=== PATIENT | female | born 1985 | race Asian ===

== ENCOUNTER 2021-03-29 10:56 | Inpatient (IN) ==
[2021-03-29 11:16] LABS: Amnisure Positive
[2021-03-29] MEDS ORDERED: LACTATED RINGER'S 1,000 ML IV SCH (11:45)
--- NOTE | 2021-03-29 11:49 | History & Physical Report ---
Date of Service March 29, 2021 Assessment & Plan (1) : Plan: Stable, routine care -admit to L&D -NPO except sips and chips -IV -FHTs -labs pending -Rh+, RI, GBS neg -COVID-19 pending -planned C/S with Dr. Kim (2) Supervision of elderly primigravida: (3) Gestational diabetes: Plan: managed with diet, nutrition counseling. no POC unless indicated. History of Present Illness Primary Care Provider: NO PCP Basim Vickers is a 35 y/o female currently at 36 WGA with an JOHN 04/20/21 as determined by LMP who is here for an elective c/s. Her was complicated by gestational diabetes mellitus. No contractions; + movement; + fluid loss; no bloody show. On ROS, she reports a mild headache. Had regular appointments with OB. Labs: Pendingl Blood type: A+ Antibody screen: Negative Hg: pending Hct: pending WBC: pending Plt: pending Rubella: immune VDRL/RPR: nonreactive Gonorrhea: Negative Chlamydia: Negative HIV: Negative HbSAg: Negative GBS: Pending Other screens: cff-DNA: Negative-SLN CF: Negative SMA: Negative Allergies Allergy/AdvReac Type Severity Reaction Status Date / Time No Known Allergies Allergy Verified 03/29/21 09:21 Home Medications Medication Instructions Recorded Confirmed Type prenat.vits,arlin,[id number]-[id number] 1 tab PO DAILY 09/12/20 03/29/21 History acetone (urine) test (Ketone Urine #50 ea 02/22/21 03/29/21 Rx Test) blood sugar diagnostic (OneTouch #150 ea 02/22/21 03/29/21 Rx Verio test strips) blood-glucose meter (OneTouch #1 ea 02/22/21 03/29/21 Rx Verio Reflect Meter) lancets 33 gauge (OneTouch Delica #150 ea 02/22/21 03/29/21 Rx Lancets) Patient History Medical History (Updated 03/29/21 @ 12:20 by Samia Peguero RN) Gestational diabetes HPV (human papilloma virus) infection Varicella vaccination Surgical History (Updated 09/12/20 @ 11:06 by Chiqui Alvarado) S/P loop electrosurgical excision procedure S/P wisdom tooth extraction Family History (Updated 09/12/20 @ 11:08 by Chiqui Alvarado) Denies family history of Ovarian cancer Breast cancer Colorectal cancer Social History (Updated 09/12/20 @ 11:09 by Chiqui Alvarado) Smoking Status: Never smoker Hx Alcohol Use: No Hx Substance Use: No Preferred Language: Bangladeshi Communication Ability: Effective Telecommunications Technician Required: No Beliefs That Will Affect Care: None marital status: marital status details: Julio César Perez (39) [phone] Current Living Situation: Spouse Current Living Situation Comment: lives with spouse, no pets current occupational status: employed current occupation: post [employer] Other Information That Helps Us Care for You: No Feels Safe at Home: Yes Safety Concerns: Feels Safe At This Time Review of Systems All systems reviewed & are unremarkable except as noted in HPI & below as per Subjective / HPI Physical Exam Physical Exam: General: Alert, oriented. No acute distress. Cardiac: Regular rate and rhythm, no murmurs/rubs/gallops. Respiratory: Clear to auscultation bilaterally a/p, no wheezes/rales/rhonchi. No increased work of breathing. Symmetrical chest rise. No respiratory distress. Lower Extremities: No lower extremity edema or swelling. No deep calf pain. Linda's negative bilaterally Baseline:140 Variability: minimal Accelerations: present Decelerations:none Results & Data ([facility]) Vital Signs (Past 12 Hours) Vital Signs Pulse BP 03/29/21 11:03 74 122/74 Resident Activity Tracking Resident Involvement: Resident Care Provided Care Provided: OB Delivery
[2021-03-29] MEDS ORDERED: CITRIC ACID/SODIUM CITRATE 15 ML UDC PO SCH (12:00)
[2021-03-29] MEDS ORDERED: ceFAZolin 2000MG 2,000 MG/15 ML SYR IV SCH (12:00)
[2021-03-29 12:14] LABS: Basophils # (auto) 0.03 K/uL (0-0.2); Basophils % (auto) 0.3 %; Eosinophils # (auto) 0.02 K/uL (0-0.5); Eosinophils % (auto) 0.2 %; Hematocrit (blood only) 36.5 % (37-47); Hemoglobin 12.5 g/dL (12.0-16.0); Immature Granulocytes # (auto) 0.03 K/uL (0.00-0.02); Immature Granulocytes % (auto) 0.3 %; Lymphocytes # (auto) 1.23 K/uL (1.2-3.4); Lymphocytes % (auto) 12.4 %; Mean Corpuscular Hemoglobin 32.6 pg (25-34); Mean Corpuscular Hgb Conc 34.2 g/dL (32-36); Mean Corpuscular Volume 95.3 fL (80-100); Monocytes # (auto) 0.51 K/uL (0.11-0.59); Monocytes % (auto) 5.2 %; Neutrophils # (auto) 8.07 K/uL (1.4-6.5); Neutrophils % (auto) 81.6 %; Platelet Count 255 K/uL (130-400); RDW Coefficient of Variation 13.7 % (11.5-14.5); RDW Standard Deviation 47.4 fL (36.4-46.3); Red Blood Count 3.83 M/uL (4.2-5.4); White Blood Count 9.89 K/uL (4.8-10.8)
[2021-03-29] MEDS ORDERED: ePHEDrine sulfate 50 MG/ML AMP IV PRN (14:27)
[2021-03-29] MEDS ORDERED: NALOXONE HCL 1 MG in SODIUM CHLORIDE 0.9% 1000ML 1,000 ML IV PRN (14:27)
[2021-03-29] MEDS ORDERED: HYDROmorphone INJ 0.5 MG/0.5 ML SYR IV PRN (14:27)
[2021-03-29] MEDS ORDERED: NALBUPHINE HCL INJ 10 MG/ML AMP IV PRN (14:27)
[2021-03-29] MEDS ORDERED: NALOXONE HCL 0.4 MG/1 ML VIAL/CARP IV PRN (14:27)
[2021-03-29] MEDS ORDERED: ONDANSETRON INJ 2 MG/ML 2 ML VIAL IV PRN (14:27)
[2021-03-29] MEDS ORDERED: MoRPHine SULFATE PF 1 MG/ML 10 ML AMP/VIAL INT SPINAL ONE (14:27)
[2021-03-29] MEDS ORDERED: NALOXONE HCL 0.08 MG in SYRINGE 1.8 ML IV PRN (14:27)
[2021-03-29] MEDS ORDERED: LACTATED RINGER'S 500 ML IV PRN (14:27)
[2021-03-29] MEDS ORDERED: diphenhydrAMINE 50 MG/ML VIAL IV PRN (14:27)
--- NOTE | 2021-03-29 14:27 | Anesthesiology Consultation ---
Date of Service March 29, 2021 Assessment & Plan ASA ASA2 Proposed Anesthesia Anesthesia Type: Spinal Risk / Benefits Reviewed With: PT / POA / Parent / Guardian, Accepts Plan and Informed Consent Obtained History Surgery Operation Date: 03/29/21 14:30 Proposed Procedures p Section in LD - Irish Ledesma MD, FACOG Height/Weight Height: 5 ft 2 in Weight: 65.771 kg Allergies Allergy/AdvReac Type Severity Reaction Status Date / Time No Known Allergies Allergy Verified 03/29/21 09:21 Medications Home Medications Medication Instructions Recorded Confirmed Last Taken prenat.vits,arlin,cst-krgy-oyquk 1 tab PO DAILY 09/12/20 03/29/21 03/28/21 08:00 acetone (urine) test (Ketone Urine #50 ea 02/22/21 03/29/21 Unknown Test) blood sugar diagnostic (OneTouch #150 ea 02/22/21 03/29/21 Unknown Verio test strips) blood-glucose meter (OneTouch #1 ea 02/22/21 03/29/21 Unknown Verio Reflect Meter) lancets 33 gauge (OneTouch Delica #150 ea 02/22/21 03/29/21 Unknown Lancets) NPO Date Last Intake of Fluids: 03/29/21 Time Last Intake of Fluids: 08:00 Date Last Intake of Solids: 03/29/21 Time Last Intake of Solids: 08:00 Past Medical History Medical History Gestational diabetes HPV (human papilloma virus) infection Varicella vaccination Exercise / Class Metabolic Activity II 4-5 Yardwork/Stairs/Walk up hill Past Family History Family History Denies family history of Ovarian cancer Breast cancer Colorectal cancer Past Surgical History Surgical History S/P loop electrosurgical excision procedure S/P wisdom tooth extraction Past Anesthesia History No Hx of Anesthesia Complications and No Family Hx of Anesthesia Complications History of PONV No Hx of PONV and No Hx of Motion Sickness Social History Smoking Status: Never smoker Hx Alcohol Use: No Hx Substance Use: No Review of Systems denies fever/cough/ colds/ chest pain/ SOB/ DORIS denies DORIS Physical Exam Vital Signs Last Vital Signs Temp 36.7 C 03/29/21 14:10 Pulse 83 03/29/21 14:08 Resp 16 03/29/21 14:10 BP 109/61 03/29/21 14:08 ENMT Mouth: no TMJ abnormality and no dentition abnormality Thyromental Distance: > or= 3.5 Finger Breadths Mallampati Class: II Neck neck extension not limited Respiratory normal respiratory effort; no respiratory distress Auscultation: lungs clear to auscultation bilaterally Cardiovascular Rate/Rhythm: regular rate and regular rhythm Neurologic moves all extremities Psychiatric Orientation: alert and oriented x 3 Testing Laboratory Results 03/29/21 11:57 Blood Type A Positive 03/29/21 11:57 Antibody Screen NEGATIVE 03/29/21 11:57
[2021-03-29] MEDS ORDERED: DC INTRASPINAL MORPHINE SCH (14:30)
[2021-03-29] MEDS ORDERED: NO NARCOTICS OR SEDATIVES SCH (14:30)
[2021-03-29] MEDS ORDERED: SODIUM CHLORIDE 0.9% 1000ML 1,000 ML IV SCH (14:30)
[2021-03-29] MEDS ORDERED: OXYTOCIN 10 UNITS/ML VIAL ONE (14:36)
[2021-03-29] MEDS ORDERED: fentaNYL citrate 100 MCG/2 ML VIAL ONE (14:36)
[2021-03-29] MEDS ORDERED: MoRPHine SULFATE PF 1 MG/ML 10 ML AMP/VIAL ONE (14:36)
[2021-03-29] MEDS ORDERED: PHENYLEPHRINE 100MCG/ML 5ML SYR ONE (16:02)
[2021-03-29] MEDS ORDERED: ONDANSETRON INJ 2 MG/ML 2 ML VIAL ONE (16:18)
[2021-03-29] MEDS ORDERED: BENZOCAINE 20% AER SPR 82.5 GM CAN EXT PRN (16:36)
[2021-03-29] MEDS ORDERED: SUPERCREAM 0.870% 15 GM JAR EXT PRN (16:36)
[2021-03-29] MEDS ORDERED: SENNA 8.6 MG TAB PO PRN (16:36)
[2021-03-29] MEDS ORDERED: PROMETHAZINE HCL 25 MG in SODIUM CHLORIDE 0.9% 50 ML IV PRN (16:36)
[2021-03-29] MEDS ORDERED: HYDROCORTISONE ACETATE 25 MG SUPP PR PRN (16:36)
[2021-03-29] MEDS ORDERED: DIPHTHERIA/TETANUS/PERTUSSIS 0.5 ML SYR/VIAL IM ONE (16:36)
[2021-03-29] MEDS ORDERED: MAGNESIUM HYDROXIDE SUSP 30 ML UDC PO PRN (16:36)
--- NOTE | 2021-03-29 16:45 | Post Operative Brief Note ---
PG Immediate Post Op with CF Date of Surgery March 29, 2021 Pre & Post Diagnosis Operation Date: 03/29/21 14:30 Pre-Op Diagnosis: Ruptured membranes at 37 weeks. Elective primary section. Post-Op Diagnosis: Ruptured membranes at 37 weeks. Elective primary section. Delivery of live female child at 1606. I identified the patient and participated in the time-out.: Yes Procedure Operation Date: 03/29/21 14:30 Actual Procedures p Section in LD(Bilateral) - Irish Ledesma MD, FACOG Surgeon Irish Ledesma MD, FACOG Transfer Controller Marcello Quiros MD Estimated Blood Loss 300 Findings Consistent with Post-Op Diagnosis normal tubes & ovaries gravid uterus with 2 <1cm sessile fibroids on anterior uterine fundus Specimens Specimen Description: A. Placenta - hold B. Cord Blood Drains Vargas Catheter (Inserted after spinal anesthesia and draining clear yellow urine. ) Anesthesia Type Spinal Complications none Disposition Accompanied Patient To Recovery: Yes Disposition: L&D
--- NOTE | 2021-03-29 17:01 | Operative Report ---
PG Post Operative Report Pre & Post Diagnosis Operation Date: 03/29/21 14:30 Pre-Op Diagnosis: Ruptured membranes at 37 weeks. Elective primary section. Post-Op Diagnosis: Ruptured membranes at 37 weeks. Elective primary section. Delivery of live female child at 1606. I identified the patient and participated in the time-out.: Yes Procedure Operation Date: 03/29/21 14:30 Actual Procedures p Section in LD(Bilateral) - Irish Ledesma MD, FACOG Surgeon Irish Ledesma MD, FACOG Forest Resources Professor Marecllo Quiros MD Estimated Blood Loss 300 Findings Consistent with Post-Op Diagnosis Specimens placenta to hold Drains Vargas to straight drainage - clear urine at end of the case Anesthesia Type Spinal Complications none Disposition Accompanied Patient To Recovery: Yes Disposition: L&D I attest to the content of the Intraoperative Record and any orders documented therein. Any exceptions are noted below.
[2021-03-29] MEDS: KETOROLAC 30 MG/ML VIAL IV PRN ×2 (17:15→23:40)
[2021-03-29] MEDS ORDERED: HYDROmorphone INJ 1 MG/ML SYRINGE IV PRN (17:50)
--- NOTE | 2021-03-29 18:07 | Anesthesiology Progress Note ---
Date of Service March 29, 2021 Anesthesia Post Procedure Vital Signs Vital Signs: Temp Pulse Resp BP Pulse Ox 03/29/21 18:01 61 98 03/29/21 17:59 71 119/58 L 03/29/21 17:56 64 97 03/29/21 17:54 23 03/29/21 17:51 70 97 03/29/21 17:48 82 115/58 L 03/29/21 17:46 77 98 03/29/21 17:41 79 97 03/29/21 17:38 75 112/55 L 03/29/21 17:36 79 97 03/29/21 17:31 76 96 03/29/21 17:30 16 03/29/21 17:28 77 120/64 03/29/21 17:26 79 97 03/29/21 17:21 62 100 03/29/21 17:20 14 03/29/21 17:18 69 125/65 03/29/21 17:16 77 99 03/29/21 17:11 65 99 03/29/21 17:10 20 03/29/21 17:08 76 116/63 03/29/21 17:06 73 98 03/29/21 17:01 80 98 03/29/21 17:00 36.6 C 20 03/29/21 16:56 79 121/64 99 03/29/21 15:18 89 99 03/29/21 14:10 36.7 C 16 03/29/21 14:08 83 109/61 03/29/21 11:50 36.6 C 74 16 122/74 03/29/21 11:03 74 122/74 Pain Intensity Bilateral Abdomen: Pain Intensity: 4 Transfer of Care Handoff Completed per policy Notes Mental Status: alert / awake / arousable and participated in evaluation Patient Amnestic to Procedure: Yes Nausea / Vomiting: adequately controlled Pain: adequately controlled Airway Patency, RR, SpO2: stable & adequate BP & HR: stable & adequate Hydration State: stable & adequate Anesthetic Complications: no major complications apparent and Pt Satisfied with anesthetic care
[2021-03-29] MEDS: OXYTOCIN 20 UNITS in LACTATED RINGER'S 1,000 ML IV SCH (19:03)
--- NOTE | 2021-03-29 19:42 | Operative Report (OR) ---
DATE OF PROCEDURE: 03/29/2021 SURGEON: Irish Kim MD. DCS ENGINEER: Dr. Marcello Quiros. PREOPERATIVE DIAGNOSES: Intrauterine at 37 weeks, spontaneous rupture of membranes for jesus manuel ar fluid, requesting elective . POSTOPERATIVE DIAGNOSES: Intrauterine at 37 weeks, spontaneous rupture of membranes for cl ear fluid, requesting elective and delivery of a viable female infant, 6 pounds 10 ounces. PROCEDURE: Primary low transverse cervical section. ANESTHESIA: Subarachnoid block. BLOOD LOSS: 300 mL. HISTORY OF PRESENT ILLNESS: The patient is a 35-year-old G1, P0 female who had presented with spontaneous rupture of membranes for clear fluid at approximately 0800 hours on 03/29/2021. She exper ienced no contractions, but she was evaluated at the office and was noted to have rupture of membrane s and was sent to labor and delivery for delivery. Patient is requesting elective primary s ection as her delivery choice. She understands the risks of procedure and is willing to proceed. OPERATIVE FINDINGS: Uterus was gravid and consistent with a term in size. Bilateral ovari es and fallopian tubes were grossly normal. There were two less than 1 cm sessile fibroids on the an terior fundus of the uterus. DESCRIPTION OF PROCEDURE: After the patient received adequate subarachnoid block, she was prepped an d draped in the usual sterile fashion. A low transverse skin incision was made with a scalpel and ca rried to the fascia with the same scalpel. The fascial incision was then extended with Klein scissors . The edges were then grasped with Corky clamps and the underlying rectus muscles bluntly and sharp ly dissected off of the overlying fascia. The rectus muscles were then bluntly divided along the mid line and the underlying peritoneum elevated and entered sharply. The bladder was then taken down off of the anterior surface of the uterus and placed behind the bladder blade. The lower uterine segmen t was entered with a scalpel and extended transversely. Membranes were ruptured for clear fluid. Th e infant was delivered from the vertex presentation with moderate fundal pressure and assistance of t he vacuum to bring the head through the incision. Rest of the infant delivered easily. There was vi gorous crying and the was moving all 4 limbs. The cord was clamped and cut and the was handed off to Dr. Angel who was in attendance as independent sales representative. Placenta was expressed intact with a 3-vessel cord. Uterine cavity was explored and found to be free of any retained tissue or membrane s. The uterus was exteriorized and covered with a clean lap sponge. The incision was then closed in 2 layers in a running locking imbricating fashion with 0 Monocryl. Hemostasis noted to be satisfact ory. The posterior cul-de-sac was irrigated with normal saline. The incision was examined once more and continued to have excellent hemostasis. The uterus was placed back in the abdominal cavity. Th e gutters were explored and found to be free of any clot or fluid. The incision continued to have ex cellent hemostasis. The rectus muscles were then brought together on the midline with individual sti tches of 0 Monocryl, the fascia was closed in a running fashion with 0 Vicryl. After irrigating the adipose layer, the skin edges were reapproximated using a subcuticular stitch of 4-0 Vicryl. Urine w as clear at the end of the case. The patient tolerated the procedure well and was stable upon arriva l in the recovery room. Job ID: [id number]
[2021-03-29] MEDS: DOCUSATE SODIUM 100 MG CAP PO SCH (21:57)
[2021-03-30] MEDS: OXYTOCIN 20 UNITS in LACTATED RINGER'S 1,000 ML IV SCH (03:36)
--- NOTE | 2021-03-30 06:41 | Obstetrical Progress Note ---
Date of Service <Marcello Quiros MD - Last Filed: 03/30/21 07:55> March 30, 2021 Assessment & Plan <Marcello Quiros MD - Last Filed: 03/30/21 07:55> (1) Encounter for care and examination after delivery: Stable, routine care -garcia removal in AM -diet -encourage ambulation -breast feeding vs. supplementing as needed -hgb 10.1, h&h tomorrow -Rh-, RI, GBS pending (2) : (3) Supervision of elderly primigravida: (4) Gestational diabetes: <Rudy Coleman MD - Last Filed: 03/30/21 08:21> (1) Encounter for care and examination after delivery: (2) : (3) Supervision of elderly primigravida: (4) Gestational diabetes: Subjective <Marcello Quiros MD - Last Filed: 03/30/21 07:55> Post 35 y/o female who is POD #1 following elective at 36 WGA. She reports feeling well overall this morning. 6/10 pain well managed on analgesics. +Garcia catheter. Tolerating light meal overnight with some vomiting and has not ambulated yet. + passing gas but no bowel movement. Has some lochia (3 pads) this morning. Currently . Review of Systems Denies fever, chills, sweats Denies shortness of breath, difficulty breathing, chest pain, palpitations, chest pressure. Denies breast pain. Denies dysuria. Denies headache or changes in vision. Review of Systems All systems reviewed & are unremarkable except as noted in HPI & below Physical Exam <Marcello Quiros MD - Last Filed: 03/30/21 07:55> General: Alert, oriented. No acute distress. Cardiac: Regular rate and rhythm, no murmurs/rubs/gallops. Respiratory: Clear to auscultation bilaterally a/p, no wheezes/rales/rhonchi. No increased work of breathing. Symmetrical chest rise. No respiratory distress. Abdomen: Soft, nontender, nondistended. Bowel sounds present. Uterus: Uterine fundus firm, palpable 1 cm below umbilicus. Surgical scar clean and healing well. Lower Extremities: No lower extremity edema or swelling. No deep calf pain. Linda's negative bilaterally. Constitutional WD/WN, vitals as above Results & Data ([facility]) <Marcello Quiros MD - Last Filed: 03/30/21 07:55> Vital Signs (Past 12 Hours) Vital Signs Temp Pulse Pulse Resp BP BP Pulse Ox 03/30/21 06:00 18 96 03/30/21 05:00 18 98 03/30/21 04:21 36.9 C 57 L 16 100/60 97 03/30/21 04:00 18 97 03/30/21 03:00 18 98 03/30/21 02:00 18 98 03/30/21 01:00 18 97 03/29/21 23:40 18 96 03/29/21 22:45 16 96 03/29/21 22:40 36.5 C 60 16 104/65 97 03/29/21 21:45 16 98 03/29/21 20:45 16 97 03/29/21 20:18 36.7 C 59 L 16 112/64 99 03/29/21 19:45 18 99 03/29/21 19:21 76 99 03/29/21 19:18 75 115/67 03/29/21 19:16 78 99 03/29/21 19:15 36.8 C 18 99 03/29/21 19:11 74 97 03/29/21 19:08 65 112/65 03/29/21 19:06 89 99 03/29/21 19:01 62 98 03/29/21 18:58 71 110/66 03/29/21 18:56 65 98 03/29/21 18:51 72 97 03/29/21 18:50 85 94 03/29/21 18:48 78 110/71 03/29/21 18:46 62 97 03/29/21 18:41 68 97 03/29/21 18:38 71 108/58 L 03/29/21 18:36 74 96 <Rudy Coleman MD - Last Filed: 03/30/21 08:21> Co-Signing Physician Notes Agree with findings and plan as noted by resident. Routine post care Resident Activity Tracking <Marcello Quiros MD - Last Filed: 03/30/21 07:55> Resident Involvement: Resident Care Provided Care Provided: OB Delivery
[2021-03-30] MEDS: KETOROLAC 30 MG/ML VIAL IV PRN (07:06)
[2021-03-30 07:08] LABS: Basophils # (auto) 0.03 K/uL (0-0.2); Basophils % (auto) 0.2 %; Eosinophils # (auto) 0.04 K/uL (0-0.5); Eosinophils % (auto) 0.3 %; Hematocrit (blood only) 29.6 % (37-47); Hemoglobin 10.1 g/dL (12.0-16.0); Immature Granulocytes # (auto) 0.05 K/uL (0.00-0.02); Immature Granulocytes % (auto) 0.4 %; Lymphocytes # (auto) 1.21 K/uL (1.2-3.4); Mean Corpuscular Hemoglobin 31.9 pg (25-34); Mean Corpuscular Hgb Conc 34.1 g/dL (32-36); Mean Corpuscular Volume 93.4 fL (80-100); Mean Platelet Volume 8.7 fL (7.4-10.4); Monocytes # (auto) 0.86 K/uL (0.11-0.59); Monocytes % (auto) 7.1 %; Neutrophils # (auto) 9.92 K/uL (1.4-6.5); Platelet Count 192 K/uL (130-400); RDW Coefficient of Variation 13.5 % (11.5-14.5); RDW Standard Deviation 46.2 fL (36.4-46.3); Red Blood Count 3.17 M/uL (4.2-5.4); White Blood Count 12.11 K/uL (4.8-10.8)
[2021-03-30] MEDS ORDERED: diphenhydrAMINE 50 MG/ML VIAL IV PRN (08:28)
[2021-03-30] MEDS: DOCUSATE SODIUM 100 MG CAP PO SCH ×2 (08:28→20:05)
[2021-03-30] MEDS ORDERED: diphenhydrAMINE Capsule 25 MG CAP PO PRN (08:28)
[2021-03-30] MEDS ORDERED: ONDANSETRON INJ 2 MG/ML 2 ML VIAL IV PRN (08:28)
[2021-03-30] MEDS ORDERED: KETOROLAC 30 MG/ML VIAL IV PRN (08:28)
[2021-03-30] MEDS ORDERED: MEPERIDINE HCL 50 MG/ML CARP IV PRN (08:28)
[2021-03-30] MEDS: FERROUS SULFATE 325 MG TAB PO SCH (08:29)
[2021-03-30] MEDS: PRENATAL VITAMIN 1 TAB PO SCH (08:29)
[2021-03-30] MEDS: SIMETHICONE 80 MG CHEW PO SCH ×5 (08:29→20:05)
[2021-03-30] MEDS: IBUPROFEN 600 MG TAB PO PRN ×3 (12:18→20:05)
[2021-03-30] MEDS: oxyCODONE/ACETAMINOPHEN 5mg/325mg TAB PO PRN ×3 (13:10→21:55)
[2021-03-30] MEDS: LACTATED RINGER'S 1,000 ML IV SCH ×3 (14:22→17:51)
[2021-03-30] MEDS ORDERED: bisacodyL 5 MG TABEC PO SCH (20:00)
[2021-03-31] MEDS: oxyCODONE/ACETAMINOPHEN 5mg/325mg TAB PO PRN ×5 (02:52→23:19)
[2021-03-31] MEDS: IBUPROFEN 600 MG TAB PO PRN ×5 (02:53→23:19)
[2021-03-31 06:15] LABS: Hematocrit (blood only) 28.6 % (37-47); Hemoglobin 9.5 g/dL (12.0-16.0)
[2021-03-31] MEDS: DOCUSATE SODIUM 100 MG CAP PO SCH ×2 (08:24→21:06)
[2021-03-31] MEDS: SIMETHICONE 80 MG CHEW PO SCH ×4 (08:25→21:06)
[2021-03-31] MEDS: FERROUS SULFATE 325 MG TAB PO SCH (08:25)
[2021-03-31] MEDS: PRENATAL VITAMIN 1 TAB PO SCH (08:25)
--- NOTE | 2021-03-31 08:36 | Obstetrical Progress Note ---
Date of Service March 31, 2021 Assessment & Plan (1) Encounter for care and examination after delivery: satisfactory post-op / progress. will continue to work on today- plan discharge tomorrow scripts sent to pharmacy listed for pain meds Day #:: 2 Subjective Ambulation: ambulating normally Voiding: no voiding problems Diet Tolerance:: regular diet Lochia:: Small Feeding Type:: breast feeding having issues- nursing and supplementing with formula now. pain well controlled on oral pain meds Review of Systems All systems reviewed & are unremarkable except as noted in HPI & below Physical Exam Constitutional WD/WN, vitals as above Gastrointestinal (Abdomen) normal bowel sounds, soft, nontender, no hepatosplenomegaly Inspection/Auscultation: + abdominal surgical incision (dry, intact, no erythema. ecchymosis inferior to incision) Psychiatric A+Ox3, euthymic affect Genitourinary OB Exam Abdomen: + fundal height Fundus: + firm and + relation to umbilicus (2 below U) Results & Data ([facility] [place]) Vital Signs (Past 12 Hours) Vital Signs Temp Pulse Resp BP Pulse Ox 03/30/21 23:23 97.7 F 57 L 16 100/68 95
[2021-03-31] MEDS ORDERED: bisacodyL 10 MG SUPP PR PRN (16:37)
--- NOTE | 2021-04-01 06:35 | Obstetrical Progress Note ---
Date of Service <Marcello Quiros MD - Last Filed: 04/01/21 07:38> April 01, 2021 Assessment & Plan <Marcello Quiros MD - Last Filed: 04/01/21 07:38> (1) Encounter for care and examination after delivery: Stable, routine care -GBS-, Rh+, RI -ready to be d/c today (pt. expressed some concern about leaving today due to issues baby but is otherwise ready to leave) (2) : (3) Supervision of elderly primigravida: <Irish Ledesma MD, FACOG - Last Filed: 04/01/21 07:53> (1) Encounter for care and examination after delivery: (2) : (3) Supervision of elderly primigravida: Subjective <Marcello Quiros MD - Last Filed: 04/01/21 07:38> Post 35 y/o female who is POD #3 following . She reports feeling well overall this morning. 3/10 pain well managed on analgesics. Voiding +. Tolerating meals overnight and able to ambulate some. + passing gas but no bowel movement. Has minimal lochia with some improvement this morning. Currently with supplementation as needed. Review of Systems Denies fever, chills, sweats Denies shortness of breath, difficulty breathing, chest pain, palpitations, chest pressure. Denies breast pain. Denies dysuria. Denies headache or changes in vision. Review of Systems All systems reviewed & are unremarkable except as noted in HPI & below Physical Exam <Marcello Quiros MD - Last Filed: 04/01/21 07:38> General: Alert, oriented. No acute distress. Cardiac: Regular rate and rhythm, no murmurs/rubs/gallops. Respiratory: Clear to auscultation bilaterally a/p, no wheezes/rales/rhonchi. No increased work of breathing. Symmetrical chest rise. No respiratory distress. Abdomen: Soft, nontender, nondistended. Bowel sounds present. Uterus: Uterine fundus firm, palpable 2 cm below umbilicus. Surgical scar clean and healing well. Lower Extremities: No lower extremity edema or swelling. No deep calf pain. Linda's negative bilaterally. Constitutional WD/WN, vitals as above Results & Data ([facility]) <Marcello Quiros MD - Last Filed: 04/01/21 07:38> Vital Signs (Past 12 Hours) Vital Signs Temp Pulse Resp BP Pulse Ox 03/31/21 23:20 36.6 C 58 L 16 119/79 98 03/31/21 18:57 37.1 C 59 L 16 111/70 98 <Irish Ledesma MD, FACOG - Last Filed: 04/01/21 07:53> Co-Signing Physician Notes Resident Physician Supervision Note: I interviewed and examined the patient. Discussed with Dr. Quiros and agree with findings and plan as documented in the note. Any exceptions or clarifications are listed here: [None] Documented By: Irish Ledesma MD, FACOG Resident Activity Tracking <Marcello Quiros MD - Last Filed: 04/01/21 07:38> Resident Involvement: Resident Care Provided Care Provided: OB Delivery
[2021-04-01] MEDS: DOCUSATE SODIUM 100 MG CAP PO SCH (09:13)
[2021-04-01] MEDS: IBUPROFEN 600 MG TAB PO PRN ×2 (09:13→16:05)
[2021-04-01] MEDS: SIMETHICONE 80 MG CHEW PO SCH (09:13)
[2021-04-01] MEDS: PRENATAL VITAMIN 1 TAB PO SCH (09:13)
[2021-04-01] MEDS: FERROUS SULFATE 325 MG TAB PO SCH (10:07)
--- NOTE | 2021-04-03 10:21 | Discharge Summary (DS) ---
DATE OF ADMISSION: 03/29/2021 DATE OF DISCHARGE: 04/01/2021 PRINCIPAL DIAGNOSIS: Intrauterine at 37 weeks with spontaneous rupture of membranes, reque sting elective primary section. PRINCIPAL PROCEDURE: Primary section with delivery of a viable female , 6 pounds 10 o unces. HISTORY: The patient is a 35-year-old G1, P0 female who presented with spontaneous rupture of membranes for clear fluid. She experienced no contractions at that time and she was evaluated in the office, which confirmed that she did indeed have rupture of membranes. [facility] The patient had been scheduled for section on 04/15 per patient's request. Because of the rupture of membranes at this time, the section was done on the . There w ere no complications with the procedure. The patient had an uncomplicated postoperative course. She was eating regular diet, ambulating and voiding without difficulty on her first postop day. Pain wa s well controlled with oral pain medications. On admission, hemoglobin was 12.5, hematocrit of 36.5. First postoperative day, hemoglobin 10.1, hematocrit 29.6. Second postop day, hemoglobin 9.5, hemat ocrit 28.6. She was sent home in good condition with prescriptions for ibuprofen 600 mg p.o. q.6 maxine rs p.r.n. pain, Percocet 1 tablet p.o. q.4 hours p.r.n. pain. She is to call for a temperature of 10 1 degrees or higher, heavy vaginal bleeding, burning with urination, increased redness, drainage or p ain in her incision, calf tenderness or any other concerns. She will be seen in the office in 6 week s for a followup visit. Job ID: [id number]
== END 2021-04-01 16:10 | disposition home or self-care (01) | DRG 788 ==
LOC: OPB 10:56 → 4S1 10:57 → 4S2 20:28